=== PATIENT | female | born 1945 | race Two or more races ===

== ENCOUNTER 2016-11-13 11:04 | Emergency (ER) | payer MEDICARE, OTHER ==
--- NOTE | ~2016-11-13 | CR172 ---
[facility] A Service [facility] RADIOLOGY TEXT RESULTS PATIENT: YVROSE ESPINOZA LOCATION: [place] : [birth year] UNIT #: [id number] AGE: [address]: Jeanette Pradhan SEX: F ORDER DR: [id number] [facility] [address] [place], [place] [address] [id number] E MR#: [id number] Acc #: [id number] NAME: YVROSE ESPINOZA : 1945 SEX: F STUDY DATE/TIME: 11/13/2016 12:29 UNIT: CFTX ROOM: STUDY DESCRIPTION: CR Knee 3 Views Lt Attending Physician: Jeanette Pradhan Pa-C Ordering Physician: Ed Julius Bhat M.D. Primary Care Physician: No Primary Care Physician MEDICAL IMAGING REPORT This report is preliminary unless electronic signature is present EXAM Left knee series, 11/13/2016. INDICATION Twisting injury with pain for a couple of weeks. Swelling. TECHNIQUE Three views. COMPARISON No comparisons. FINDINGS The bones are osteopenic. There are degenerative changes in all 3 compartments but there is no distinct fracture. Nonspecific joint effusion. Atherosclerotic calcifications. Enthesopathic change of the quadriceps tendon insertion. IMPRESSION 1. 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 2. Nonspecific joint effusion. Dictated by... Radames Hauser M.D. THIS IS AN ELECTRONICALLY VERIFIED REPORT Radames Hauser M.D. at 11/14/2016 8:46 AM WHITLEY/ricardo TD: 11/13/2016 22:40 JOB #: [id number] [facility] A Service [facility] RADIOLOGY TEXT RESULTS PATIENT: YVROSE ESPINOZA LOCATION: [place] : [birth year] UNIT #: [id number] AGE: [address]: Jeanette Pradhan SEX: F ORDER DR: MEDICAL IMAGING REPORT Page 1 of 1 COPY
== END 2016-11-13 13:30 | disposition home or self-care (01) ==
LOC: CFTX 11:04 → CED 11:04 → CFTX 12:03
DX: S83.92XA Sprain of unspecified site of left knee, initial encounter (principal); I10 Essential (primary) hypertension; Z86.79 Personal history of other diseases of the circulatory system; X50.1XXA Overexertion from prolonged static or awkward postures, initial encounter; Y93.H2 Activity, gardening and landscaping; Y92.009 Unspecified place in unspecified non-institutional (private) residence as the place of occurrence of the external cause
CPT/HCPCS: 29530; 73562; 99283